=== PATIENT | male | born 1980 | race Caucasian/White ===

== ENCOUNTER 2021-04-10 13:46 | Emergency (ER) | payer MEDICARE, MEDICAID ==
[~2021-04-10] VITALS: Ht 188 cm; Wt 113.6 kg
[2021-04-10 13:59] VITALS: BP 151/78
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
== END 2021-04-10 14:40 | disposition home or self-care (01) ==
LOC: ER 13:46
DX: Z00.8 Encounter for other general examination (principal); F20.9 Schizophrenia, unspecified; F17.200 Nicotine dependence, unspecified, uncomplicated
CPT/HCPCS: 99283